=== PATIENT | female | born 1960 | race African-American/Black ===

== ENCOUNTER 2020-08-27 05:33 | Emergency (ER) | payer OTHER ==
[~2020-08-27] VITALS: Ht 162.6 cm; Wt 90.7 kg
[2020-08-27] MEDS ORDERED: DEXAMETHASONE SOD PHOS INJ 4 MG/ML VIAL IM ONE (06:00)
[2020-08-27] MEDS ORDERED: PREDNISONE20 MG PO (06:05)
[2020-08-27] MEDS ORDERED: DEXAMETHASONE SOD PHOS INJ 4 MG/ML VIAL ONE (06:09)
== END 2020-08-27 06:38 | disposition home or self-care (01) ==
LOC: FSED 06:05
DX: J30.9 Allergic rhinitis, unspecified (principal); R09.81 Nasal congestion
CPT/HCPCS: 99282; J1100

== ENCOUNTER 2020-09-18 05:30 | Emergency (ER) | payer OTHER ==
[~2020-09-18] VITALS: Ht 154.9 cm; Wt 93.0 kg
[~2020-09-18 05:30] MED LIST: PREDNISONE20 MG PO
[2020-09-18] MEDS ORDERED: CLONIDINE HCL 0.2 MG TAB PO ONE (06:15)
[2020-09-18] MEDS ORDERED: CLONIDINE HCL 0.1 MG TAB ONE (06:25)
[2020-09-18] MEDS ORDERED: NAPROSYN500 MG PO (07:07)
[2020-09-18] MEDS ORDERED: KEFLEX125 MG/5 M PO (07:07)
[2020-09-18] MEDS ORDERED: CLONIDINE HCL0.1 MG PO (07:07)
== END 2020-09-18 07:29 | disposition home or self-care (01) ==
LOC: FSED 06:15
DX: I16.9 Hypertensive crisis, unspecified (principal); R51.9 Headache, unspecified; J32.9 Chronic sinusitis, unspecified; I10 Essential (primary) hypertension; E03.9 Hypothyroidism, unspecified; Z98.84 Bariatric surgery status
CPT/HCPCS: 70450; 99283

== ENCOUNTER 2020-10-23 23:36 | Emergency (ER) | payer OTHER ==
[~2020-10-23] VITALS: Ht 154.9 cm; Wt 93.0 kg
[~2020-10-23 23:36] MED LIST changes: +CLONIDINE HCL0.1 MG PO; +KEFLEX125 MG/5 M PO; +NAPROSYN500 MG PO
[2020-10-24] MEDS ORDERED: PREDNISONE20 MG PO (00:37)
== END 2020-10-24 00:47 | disposition home or self-care (01) ==
LOC: FSED 10-24 00:25
DX: Z53.9 Procedure and treatment not carried out, unspecified reason (principal)
CPT/HCPCS: 99282

== ENCOUNTER 2020-12-20 05:30 | Emergency (ER) | payer OTHER ==
[~2020-12-20] VITALS: Ht 162.6 cm; Wt 93.4 kg
[2020-12-20] MEDS ORDERED: MEDROL4 MG PO (06:33)
[2020-12-20] MEDS ORDERED: NAPROSYN500 MG PO (06:33)
[2020-12-20 06:45] VITALS: BP 157/79
== END 2020-12-20 06:45 | disposition home or self-care (01) ==
LOC: FSED 06:10
DX: J30.9 Allergic rhinitis, unspecified (principal); I10 Essential (primary) hypertension; E03.9 Hypothyroidism, unspecified
CPT/HCPCS: 99282